=== PATIENT | female | born 1980 | race Caucasian/White ===

== ENCOUNTER 2024-09-24 08:07 | Outpatient (AMB) | payer BC, SELFPAY ==
--- OUTSIDE RECORDS SUMMARY | 2024-09-19 23:59 | XMS_ITS | Continuity of Care Document ---
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 Name Role Phone Jw MAHAN, Woodrow Duff Primary Care Physician [place] [facility] [place] [facility] [place] 09/19/24 [facility] [address] [place], [place] [address] Encounter Type: Triage Allergies, Adverse Reactions, Alerts Substance Criticality Severity Reaction Reaction Severity Status penicillin High criticality Severe breathing difficulties Active predniSONE 1 breathing difficulties Active hydrocodone High criticality Moderate A ctive 1trouble breathing, puffy feeling, upset stomach Immunizations Given and Recorded Vaccine Date Status Refusal Reason influenza virus vaccine, inactivated 1 12/15/22 Gi harpal SARS-CoV-2 (COVID-19) mRNA BNT-162b2 vac 02/24/21 Recorded SARS-CoV-2 (COVID-19) mRNA BNT-162b2 vac 07/10/20 Recorded SARS-CoV-2 (COVID-19) mRNA BNT-162b2 vac 06/16/20 Recorded tetanus/diphtheria/pertussis, acel(Tdap) 2 09/21/18 Given tetanus-diphtheria toxoids (Td) 3 11/21/08 Given 1Result Comment: [facility] [id number] 2Result Comment: [facility]: [id number] 3Admin Note: [place] BIOLOGICAL 01/16/08 VIM GIVEN TODAY Medications buPROPion 450 mg/24 hours (XL) oral tablet, extended release 1 tablet = 450 mg, By Mouth, Every 24 hours, # 90 tablet, 3 Refills, Maintenance, 05/11/24 11:04:00 AM EDT, ER Tablet, [facility] #[id number], Partial fill upon patient request if the prescription is for a schedule II opioid drug., 157, cm, 05/11/24 10:51:00 EDT, Height Start Date: 05/11/24 Status: Ordered Quantity: 90.0 Unit: tablet Repeat number: 4 Indications: Major depressive disorder, single episode, moderate; Lexapro 10 mg oral tablet 1 tablet = 10 mg, By Mouth, Daily, # 90 tablet, 3 Refills, Maintenance, 06/22/24 1:02:00 PM EDT, Tablet, [facility] #[id number], Partial fill upon patient request if the prescription is for a schedule II opioid drug., 157, cm, 06/22/24 12:50:00 EDT, Height Start Date: 06/22/24 Status: Ordered Quantity: 90.0 Unit: tablet Repeat number: 4 Indications: Major depressive disorder, recurrent, unspecified; nystatin topical [id number] u/gm cream 1 application, Topically, 3 times a day, # 30 Gm, 6 Refills, Maintenance, 09/19/23 1:17:00 PM EDT, Cream, [facility] #[id number], Partial fill upon patient request if the prescription is for a schedule II opioid drug., 1 application Topically 3 times a day, 157, cm, 09/07/23 15:27:00 EDT, Height Start Date: 09/19/23 Status: Ordered Quantity: 30.0 Unit: g Repeat number: 7 orlistat 120 mg oral capsule 1 capsule = 120 mg, By Mouth, 3 times a day, # 90 capsule, 2 Refills, Maintenance, 06/22/24 12:58:00PM EDT, Capsule, [facility] #[id number], Partial fill upon patient request if the prescriptionis for a schedule II opioid drug., 157, cm, 06/22/24 12:50:00 EDT, Height Start Date: 06/22/24 Stop Date: 09/20/24 Status: Ordered Quantity: 90.0 Unit: capsule Repeat number: 3 Indications: Morbid (severe) obesity due to excess calories; Body mass index [BMI] 40.0-44.9, adult; oxyCODONE 5 mg oral tablet 5 mg, 1, tablet, By Mouth, 2 times a day, PRN, Autorfill Masspat checked DNF 09/24/24 M54.50, # 42 tablet, Refills 0, Tot. Refills 0, Maintenance, Pain , Moderate, 09/13/24 7:37:00 AM EDT, Route to Pharmacy Electronically, [facility] #[id number], Partial fill upon patient request if the prescription is for a schedule II opioid drug., 157, cm, 08/21/24 12:51:00 EDT, Height Start Date: 09/13/24 Status: Ordered Quantity: 42.0 Unit: tablet Repeat number: 1 Indications: Chronic pain syndrome; Low back pain, unspecified; Bilateral primary osteoarthritis ofknee; Wegovy (1.7 mg dose) subcutaneous solution = 1.7 mg, Subcutaneous Injection, Every week, # 3 each, 1 Refills, Maintenance, 08/21/24 10:34:00 AMEDT, [id number], 157, cm, 06/22/24 12:50:00 EDT, Height Start Date: 08/21/24 Status: Ordered Quantity: 3.0 Unit: each Repeat number: 2 Indications: Morbid (severe) obesity due to excess calories; Body mass index [BMI] 40.0-44.9, adult; Problem List Condition Confirmation Course Effective Dates Status H ealth Status Informant Anxiety Confirmed Active Degenerative arthritis of knee, bilateral Confirmed Active BMI 40.0-44.9, adult Confirmed Active Chronic low back pain Confirmed Active Chronic pain syndrome Confirmed Active Hyperlipidemia Confirmed Active Right knee pain Confirmed Active Migraine Confirmed Active Mild intermittent asthma Confirmed Active Pain of left shoulder region Confirmed Active Phobia Confirmed Active Severe obesity Confirmed Active Social History Social History Type Response Smoking Status Never smoker entered on: 04/24/14 Sex Sex Representation Female (finding) Patient Care team information Care Team Personnel Name: Woodrow Escalera MD Position: [facility] Physician - Primary Care Member Role: PCP Address: [address] [place] [address] Telecom: Care Team Related Persons Name: DANYELLE GREGORY Insurance Providers Guarantor name: KENNETH GREGORY [facility] Plan Information #: 1 Payer: [employer] Payer Identifier: NA Member Number: [id number] Group Number: [id number] Subscriber Identifier: [id number] Relationship to Subscriber: self Coverage Type: NA Coverage Verification Date: NIKHIL Telecom: NA Address: Health Plan Information #: 2 Payer: [employer] Payer Identifier: NIKHIL Member Number: [id number] Group Number: [id number] Subscriber Identifier: [id number] Relationship to Subscriber: self Coverage Type: MEDICAID Coverage Verification Date: NIKHIL Telecom: NA Address:
--- OUTSIDE RECORDS SUMMARY | 2024-09-24 08:14 | XMS_ITS | Clinical Summary ---
Author Organization [facility] Address [address] [place] [id number] Phone Care Team Providers Care Environmental Compliance Manager Name Role Phone Woodrow Escalera MD Primary Care Provide r Allergies Active Allergy Reactions Criticality Noted Date Comments Hydrocodone 12/22/2022 Hydrocodone-Acetaminophen Hives 03/28/2013 Penicillin High 03/28/2013 Other reaction(s): DYSPNEA Other reaction(s): breathing difficulties Prednisone 12/22/2022 Other reaction(s): breathing difficulties trouble breathing, puffy feeling, upset stomach Medications buPROPion (WELLBUTRIN SR) 150 MG SR 12 hr tablet 150 mg 2 (two) times a day. 3 Active escitalopram oxalate (LEXAPRO) 10 MG tablet Take 10 mg by mouth. 3 Active ibuprofen (ADVIL,MOTRIN) 200 MG tablet Take 200 mg by mouth every 6 (six) hours as needed for pain (specific location in comments). Active therapeutic multivitamin tablet Take 1 tablet by mouth daily. Active oxyCODONE 5 MG immediate release tablet Take 1-2 tablets (5-10 mg total) by mouth every 4 (four) hours as needed. Partial fill ok 20 tablet 4 Active acetaminophen (TYLENOL) 325 mg tablet Take 650 mg by mouth every 6 (six) hours as needed. Active traMADoL (ULTRAM) 50 mg tablet TAKE 1 TABLET BY MOUTH TWICE A DAY NEEDED PAIN 4 Active Active Problems Problem Noted Date Diagnosed Date Anxiety 03/11/2023 Depression 03/11/2023 Hyperlipidemia 03/11/2023 Migraine 03/11/2023 Mild intermittent asthma 03/11/2023 Chronic pain disorder 02/25/2023 Degenerative arthritis of knee, bilateral 2022 Severe obesity 11/22/2022 Overview (03/11/2023): BMI 53 Post-traumatic stress disorder 09/10/2021 Resolved Problems Problem Noted Date Diagnosed Date Resolved Date Irregular bleeding 05/13/2023 4 Immunizations Immunization Administration Dates Next Due Influenza Trivalent w/ Preservative IM 3 Td, unspecified formulation 11/21/2008 Tdap 09/21/2018 Family History Medical History Relation Comments Diabetes Father Multiple sclerosis Mother Relation Status Comments Father Maternal Grandfather Maternal Grandmother Mother Paternal Grandfather Paternal Grandmother Social History Tobacco Use Types Packs/Day Years Used Date Smoking Tobacco: Never Passive Smoke Exposure: Never Smokeless Tobacco: Never Tobacco Cessation:Counseling Given: Not Answered Alcohol Use Standard Drinks/Week Comments Yes 0 (1 standard drink = 0.6 oz pur e alcohol) once a year Education Answer Date Recorded Are you interested in more education? Not on emily e 06/25/2022 Are you concerned about learning? Not on file 06/25/2022 No 06/25/2022 No 06/25/2022 Digital Access Answer Date Recorded No 07/23/2022 No 07/23/2022 Reliable internet access at home? Not on file 07/23/2022 Device with a working camera? Not on file Intimate Partner Violence Answer Date R ecorded Are you denied basic needs s uch as food, clothing, or medical care? No 05/13/2023 In the past 12 months have y ou been in a relationship with a person who hurts, threatens, or tries to control you? No 05/13/2023 Are you denied basic needs s uch as food, clothing, or medical care? No 05/13/2023 In the past 12 months have y ou been in a relationship with a person who hurts, threatens, or tries to control you? No 05/13/2023 Comments No Sex and Gender Information Value Date Recorded Sex Assigned at Female 12/15/2022 1:08 PM EDT Legal Sex Female 9:22 PM EDT Gender Identity Female 12/15/2022 1:08 PM EDT Sexual Orientation Straight 12/15/2022 1: 08 PM EDT Last Filed Vital Signs Vital Sign Reading Time Taken Comments Blood Pressure 128/80 06/23/2023 9:39 AM EDT Pulse 101 05/13/2023 11:25 AM EDT Temperature 36.3 C (97.3 F) 05/13/2023 11:25 AM EDT Respiratory Rate 16 05/13/2023 10:30 AM EDT Oxygen Saturation 96% 05/13/2023 11:25 AM EDT Inhaled Oxygen Concentration - - Weight 121.1 kg (267 lb) 05/09/2023 12:31 PM EDT Height 152.4 cm (5') 06/23/2023 9:39 AM EDT Body Mass Index 52.14 05/09/2023 12:31 PM EDT Plan of Treatment Health Maintenance Due Date Last Done Comments LIPID PANEL 1979 DEPRESSION SCREENING 1991 HEPATITIS C SCREENING 08/24/1997 HIV ONE-TIME SCREENING (18-6 5 YEARS) 08/24/1997 PNEUMOCOCCAL VACCINES (0-49 years) (1 of 2 - PCV) 08/24/1998 PAP SMEAR 08/24/2000 SCREENING FOR DIABETES 08/24/2014 MAMMOGRAM 2019 COVID-19 VACCINE (4 - 2023-2 5 season) 2023 02/24/2021, 07/10/2020, 06/16/2020 COLOGUARD 08/24/2024 COLONOSCOPY 08/24/2024 COLORECTAL CANCER SCREENING 08/24/2024 FIT TEST 08/24/2024 FOBT 08/24/2024 SIGMOIDOSCOPY 08/24/2024 VIRTUAL COLONOSCOPY 08/24/2024 Adult Td,Tdap Booster 09/21/2028 09/21/2018 , 11/21/2008 SMOKING STATUS SCREENING (On ce After 26 Yrs) Completed 05/13/2023 HEPATITIS A VACCINES Aged Out No long er eligible based on patient's age to complete this topic HIB VACCINES Aged Out No longer eligi ble based on patient's age to complete this topic MENINGOCOCCAL VACCINES (ACWY) Aged Out No longer eligible based on patient's age to complete this topic MENINGOCOCCAL VACCINES (B) Aged Out N o longer eligible based on patient's age to complete this topic Medical Devices Implanted Type Area Dairy Farmworker Device Identifier Shelf Expiration Date Model / Serial / Lot Intrauterine Device Intrauterine Device Insurance HEALTHY PARTNERSHIP ACO HEALTHY PARTNERSHIP ACO HE[employer]Y PARTNERSHIP ACO HEALTHY PARTNERSHIP ACO PARTNERSHIP ACO PARTNERSHIP ACO Advance Directives For more information, please contact: [phone] (9AM - 5PM [facility], Tuesday-Tuesday) * Full Code (Latest Code Status on File) Date Activated Date Inactivated Comments 05/13/2023 6:29 AM Question Answer Comments Code Status Confirmed With: Patient Care Teams Environmental Compliance Manager Relationship Specialty Start Date End Date Woodrow Escalera MD [address] [address] PCP - General Family Medicine 02/07/23 Additional Source Comments The information contained in this document represents components of the legal health record. It is not the complete legal health record.[facility]
--- NOTE | 2024-09-24 11:10 | A.OFFVIS_ITS ---
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 BMI 49.6 Allergies Penicillins Allergy (Severe, Verified 09/24/24 11:12) breathing problems acetaminophen (From Vicodin) Allergy (Mild, Verified 09/24/24 11:12) Itching hydrocodone (From Vicodin) Allergy (Mild, Verified 09/24/24 11:12) Itching latex Allergy (Mild, Verified 09/24/24 11:12) Itching Medication List - Last Reconciled 09/24/24 by Brent Lizama MD bupropion HCl XL 450 mg PO DAILY escitalopram oxalate 10 mg PO DAILY oxycodone 5 mg PO BID PRN HPI HPI 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 BMI 49.6: Details: Start time: 10.58am, End time: 11.58am I spent 55 minutes speaking with the patient on the phone plus an additional 5 minutes reviewing and updating records for a total of 60 minutes HPI Comments Details: Previous weight loss efforts: Self diets and exercise, Wegovy (6mths: 60lbs, regained 30lbs within 7 months) Wakes up: 4.30am, Sleeps: 9pm Breakfast: 7.30am (sausage, eggs, cheese, Hash browns) Lunch: 12pm (pepperoni, cheese and crackers, or Muscle milk protein shake) Dinner: 6pm (chicken, steak, potatoes, vegetables) Snacks: 10am (popcorn, jelly beans), occ at 4pm (candy bar), occ 7pm (ice cream) Exercise: has home treadmill with incline Beverages: Coffee: 1 cup/d (creamer), Tea: none, Soda: Coke zero (1-2/d), Monster drink, Juice: none, ETOH: none PFSH Medical History (Updated 09/24/24 @ 11:18 by Brent Lizama MD) DJD (degenerative joint disease) PTSD (post-traumatic stress disorder) Anxiety Depression Morbid obesity Surgical History (Updated 09/12/24 @ 15:07 by Dot Pinto CMA) Hx of hysterectomy Hx of oral surgery Family History (Updated 09/12/24 @ 15:48 by Dot Pinto CMA) Mother Multiple sclerosis Father Diabetes Hypertension Blind Son Stroke Son No problems noted. Son No problems noted. Social History (Updated 09/12/24 @ 15:48 by Dot Pinto CMA) Alcohol intake: never Patient Tobacco Use Status: Never used Tobacco Telehealth Telehealth Telehealth Platform: Telephone Location of provider rendering services: practice address Location of patient: address on file Patient Identification confirmed using: Name, : Yes Telehealth method: voice only Patient verbally consented to treatment: Yes Patient verbally consented to billing insurance company: Yes Patient informed of any privacy concerns related to visit: Yes Minutes spent on Phone/Video with Pt.: 60 Assessment & Plan Assessment & Plan (1) Morbid obesity: Code(s): E66.01 - Morbid (severe) obesity due to excess calories Category: Medical Plan: 1. Plan for lap sleeve gastrectomy. If diaphragmatic or ventral hernias are present at time of surgery, these will be repaired laparoscopically as well. I emphasized the importance of close follow-up, adherence to instructions and good communication. The surgery does not replace the need to change your lifestlyle which is the cause of the obesity problem. The surgery provides the motivation to try again to change your lifestyle, it reduces the appetite and make the transition to a better lifestyle easier and doubles the amount of weight you would lose compared to doing the lifestyle change without the surgery. You will need to be on a liquid diet with protein shakes for 2 weeks before surgery to maximize weight loss and boost your nutritional status to recover better from surgery and also for the first two weeks after surgery to let the stomach heal before we introduce other foods. After the first 2 weeks we will introduce protein bars and soft foods like scrambled eggs, cottage cheese and yogurt and after the 6th week will introduce meat, fish and cooked vegetables in small amounts. Over time you should be able to eat everything in small amounts. Side effects like nausea, vomiting, heartburn or abdominal pain are not common in the practice unless you are not following in the practice. This operation requires lifetime commitment to following in our practice and communication with me. You will much less weight and experience side effects if you don?t communicate or not following in the practice. Complications are rare and in our practice is about 1/10 of the national average. However, you can develop bleeding that may require transfusion (hasn?t happened for year in the practice), you may from complications (we did not have any deaths in the practice) and infections. Infections are usually a result of breakdown in communication or not understanding or following directions correctly. They are difficult to treat, they can happen during the first 6 weeks, they may require to be in the hospital for weeks or even months, not being able to eat by mouth and you may have drains and surgeries to try and correct the issue. Other risks and complications include possible conversion to an open procedure, leaks, small bowel obstruction, blood clots, cardiac, or pulmonary complications, as fpc complications such as ulcers, insufficient weight loss and vitamin deficiencies. 2.Nutritional counseling. Start with one premade MUSCLE MILK protein (buy at [employer], or [place] or [employer]) shake (MIX 4oz of Muscle milk and NOT the whole bottle WITH 4oz almond milk) at 5am-7am, 1 protein bar (16gr Fit Crunch protein bars, buy at [employer] or [employer]) at 8am-10am, another premade MUSCLE MILK protein (buy at [employer], or [employer], or [employer]) shake (MIX 4oz of Muscle milk and NOT the whole bottle WITH 4oz almond milk) at 11am-1pm, another Fit Crunch protein bar after dinner at 2pm-4pm, dinner at 5pm (10 forks of protein and 10 forks of salad/vegetables) and another HALF Fit Crunch protein bar at 8pm-9pm. So you do 2 protein shakes, 2.5 protein bars and one meal per day. Meal to include lean meat (beef, fish, pork, turkey, chicken), or taiwanese yogurt, or egg whites, or beans with a salad with olive oil and fruits (berries, pears, apples, kiwi). Avoid salt, breads, potatoes, rice, pasta, desserts. 3. Each shake would be drunk slowly, like coffee in a period of 2 hours. 4. Cut each bar in 4 pieces and eat each piece in 30min to make each bar last 2 hours. 5. I emphasized the importance of measuring accurately the food portion and measure it when serving the food in plate 6. The meal portions include 10 full-size forks of meat and 10 full-size forks of salad. You always eat the meat portion but you can replace up to 5 forks for salad/vegetables with rice, potatoes or pasta, or a fruit if you like. The less you do it the better weight loss will be. 7. One full-size fork is what it can be scooped on the fork without falling aside and not what can be bit with the fork. Use regular forks like those you find in a typical restaurant. 8. Please buy the body composition scale we discussed and send me weight measurements as soon as possible and then once a week. Always include your diet and exercise plan. 9. Start treadmill with an incline of 2.0 and speed of 3.0. Increase incline by 1 every 3 min to a max incline of 8.0, stay 3min at 8.0 and then return to 2.0 and repeat same steps until calorie goal is met. Goal is to burn 2000 calories per week on exercise, which means either 300 calories daily. 10. Goal is to lose at least 1.5-2lbs per week 11. Goal to lose 10% of your weight before surgery, which is about 26lbs. Ultimate weight goal: 240lbs before surgery 12. Please follow the diet plan exactly without any change. If you don't like something about the plan or you feel hungry you need to communicate with me so I can help you revise the plan. You should not change the plan yourself 13. To be scheduled for EGD to assess the stomach's anatomy. The possibility of biopsies was discussed. Patient needs to avoid use of NSAIDs and aspirin for 1 week prior to EGD. You must be on liquids only the day before your endoscopy. Risks of perforation and bleeding was discussed with the patient. This will be an outpatient procedure with IV sedation. 14. As of tomorrow, please send me a picture of your meal plate after you measure it, but before you consume it. Orders: Orders Insulin Today E66.01 - Morbid (severe) obesity due to excess calories H Pylori Breath Test Today E66.01 - Morbid (severe) obesity due to excess calories Complete Blood Count Auto Diff Today E66.01 - Morbid (severe) obesity due to excess calories Lipid Panel Today E66.01 - Morbid (severe) obesity due to excess calories Comprehensive Met. Panel Today E66.01 - Morbid (severe) obesity due to excess calories Vitamin B12 and Folate Today E66.01 - Morbid (severe) obesity due to excess calories Vitamin B1 Today E66.01 - Morbid (severe) obesity due to excess calories Vitamin A Today E66.01 - Morbid (severe) obesity due to excess calories TSH reflex Free T4 Today E66.01 - Morbid (severe) obesity due to excess calories US abdomen comp w elastography Today E66.01 - Morbid (severe) obesity due to excess calories ECG 12 lead EKG Today E66.01 - Morbid (severe) obesity due to excess calories FL upper GI w air Today E66.01 - Morbid (severe) obesity due to excess calories Hemoglobin A1c Today E66.01 - Morbid (severe) obesity due to excess calories IRON PROFILE Today E66.01 - Morbid (severe) obesity due to excess calories Zinc Today E66.01 - Morbid (severe) obesity due to excess calories C Reactive Protein Today E66.01 - Morbid (severe) obesity due to excess calories Ferritin Today E66.01 - Morbid (severe) obesity due to excess calories Vitamin D 25-OH Total Today E66.01 - Morbid (severe) obesity due to excess calories XR chest 2V Today E66.01 - Morbid (severe) obesity due to excess calories Referrals Nutrition/Dietitian Referral E66.01 - Morbid (severe) obesity due to excess calories Behavioral Health Referral E66.01 - Morbid (severe) obesity due to excess calories
[2024-09-24 11:54] VITALS: BMI 49.1
== END 2024-09-24 11:59 | disposition home or self-care (01) ==
LOC: HO.HBS 08:07
PROVIDERS: PCP Family Medicine; Visit Provider Surgery
DX: E66.01 Morbid (severe) obesity due to excess calories (principal); Z68.42 Body mass index [BMI] 45.0-49.9, adult
CPT/HCPCS: 99205